=== PATIENT | female | born 1950 | race Caucasian/White ===

== ENCOUNTER 2019-10-27 17:52 | Inpatient (IN) ==
[2019-10-27] MEDS ORDERED: ASPIRIN PO ONE (18:12)
--- NOTE | 2019-10-27 18:30 | EKG Report ---
Test Performed on : 10/27/2019 6:01:45 PM Test Reason : SOB Blood Pressure : / mmHG Vent. Rate : 086 BPM Atrial Rate : 086 BPM P-R Int : 150 ms QRS Dur : 096 ms QT Int : 372 ms P-R-T Axes : 000 -53 143 degrees QTc Int : 445 ms Sinus rhythm. with occasional premature ventricular complexes. Left anterior fascicular block Left ventricular hypertrophy with repolarization abnormality Abnormal ECG When compared with ECG of 15-APR-2018 09:31, premature ventricular complexes. are now present Unconfirmed Result
--- NOTE | 2019-10-27 18:34 | PROVIDER DOCUMENTATION ---
HPI-General Adult - General Chief Complaint: Shortness of Breath Stated Complaint: SHORT OF BREATH Time Seen by Provider: 10/27/19 18:22 Source: patient Allergies/Adverse Reactions: Patient Allergies Allergy/AdvReac Type Severity Reaction Status Date / Time levofloxacin [From Levaquin] Allergy ITCHING Verified 10/27/19 18:38 Home Medications: Home Medication List Medication Instructions Recorded Confirmed Last Taken Type Unobtainable [Home Meds 10/27/19 10/27/19 Unknown History Unobtainable] - History of Present Illness -Gen Adult Nature of Presenting Problems: 69yo female presents with CC of shortness of breath and cough. The patient reports that she is also having central chest pain. The patient reports that the symptoms started on saturday and have been progressively worsening. The patient reports that her symptoms are worse with walking. The patient describes her pain as an ache. The pain does have some radiation to the neck. The patient has had some nausea and diarrhea. The patient is a pt of Dr. Lees for her CHF. The patient denies any bleeding or swelling. The patient does report a productive cough as well as a fever. The patient reports her only pain is a headache and chest pain. Location of Pain/Injury: reports: chest Pain Radiation: reports: neck Quality of Pain: reports: aching Severity: reports: moderate Onset/Duration: reports: 4 days ago Timing: reports: still present Modifying Factors: improves with: other (light activity worsens) Associated Symptoms: reports: chest pain, cough, fever/chills, nausea Review of Systems - Adult - REVIEW OF SYSTEMS - ADULT Constitutional: reports: fever Eyes: reports: no symptoms reported. denies: eye pain Ears, Nose, Mouth & Throat: reports: no symptoms reported. denies: throat pain Cardiovascular: reports: chest pain Respiratory: reports: cough, dyspnea on exertion, shortness of breath Gastrointestinal: reports: no symptoms reported. denies: abdominal pain Genitourinary: reports: no symptoms reported. denies: flank pain Musculoskeletal: reports: no symptoms reported Integumentary: reports: no symptoms reported Neurological: reports: headache/migraines Psychiatric: reports: no symptoms reported Endocrine: reports: no symptoms reported Hematologic/Lymphatic: reports: no symptoms reported, other (no bleeding) Allergic/Immunologic: reports: no symptoms reported Past History - Adult - PAST MEDICAL HISTORY-ADULT Review of Records: reports: Old Records Reviewed Cardiovascular: reports: CAD Obstetrical/Gynecological: reports: uterine/ovarian cancer Endocrine/Immune: reports: Diabetes - PRIOR SURGERIES/PROCEDURES Surgical/Procedure History: reports: hysterectomy - PRIOR HOSPITALIZATIONS Prior Hospitalizations: reports: for other non-related - IMMUNIZATION STATUS Childhood Immunizations: See Nurse Assessment Flu Vaccine: See Nurse Assessment - FAMILY HISTORY Family History: reviewed, not pertinent - SOCIAL HISTORY Smoking: cigarettes Substance Use: none/never Alcohol Use Frequency: never Physical Exam-General - PHYSICAL EXAM-ADULT Initial Vital Signs Reviewed: Yes - CONSTITUTIONAL General Appearance: alert, mild distress - EYES Eyes: negative: conjuctival exudate, photophobia, sclera injected, scleral icterus, subconjunctival hemorrhage - HEAD, EARS, NOSE, MOUTH & THROAT HENMT: normocephalic/atraumatic. negative: pharyngeal erythema, tonsillar exudate - RESPIRATORY Respiratory: respiratory distress (mild), wheezing (Bilaterally) - CARDIOVASCULAR Cardiovascular: regular rate, rhythm, no edema - GASTROINTESTINAL (ABDOMEN) Abdominal Exam: non tender, soft - MUSCULOSKELETAL Extremity: non-tender (LE) - SKIN Integumentary: normal color, warm/dry - NEUROLOGIC Neurologic: grossly normal - PSYCHIATRIC Psych/Mental Status: normal mood/affect, normal thought content, normal thought process Progress - PLAN OF CARE/RESULTS Progress/Plan/Lab Results: Vital Signs - 8 hr 10/27/19 17:58 Temperature 98.7 F Pulse Rate 89 Respiratory Rate 26 H Blood Pressure 144/66 O2 Sat by Pulse Oximetry 88 L Orders Category Date Time Status Cardiac Monitoring DIRECTED Care 10/27/19 18:12 Active Oxygen Therapy- ED Nursing DIRECTED Care 10/27/19 18:12 Active Saline Loc NOW Care 10/27/19 18:12 Active CHEST-2 VIEWS [RAD] Stat Exams 10/27/19 18:12 Ordered CBC WITH ELECTRONIC DIFF [HEME] Stat Lab 10/27/19 18:12 Uncollected CK PROFILE [SP CHEM] Stat Lab 10/27/19 18:12 Uncollected COMPREHENSIVE METABOLIC PANEL [CHEM] Stat Lab 10/27/19 18:12 Uncollected PRO B-NATRIURETIC PEPTIDE Stat Lab 10/27/19 18:12 Uncollected PROTIME WITH INR [COAG] Stat Lab 10/27/19 18:12 Uncollected PTT [COAG] Stat Lab 10/27/19 18:12 Uncollected TROPONIN T Stat Lab 10/27/19 18:12 Uncollected Aspirin Med 10/27/19 18:12 Discontinued 325 mg PO NOW ONE CP/SOB/Palp >45 yrs of Age Stat Oth 10/27/19 18:12 Ordered EKG [EKG] Stat Ther 10/27/19 18:12 Draft Result Diagrams: 10/27/19 18:25 10/27/19 18:25 - REASSESSMENT Reassessment #1 Status: other (Discussed case and EKG with Dr. Lees of cardiology who thought that the patients EKG appeared fine. Will continue to monitor and plan for admission for [facility]FE.) Reassessment #2 Status: other (Given hypoxia and tachypnea as well as elevated BNP will plan for admission. Patient was agreeable to admission. Discussed admission with the hospitalist team who have accepted the patient.) - EKG 1 EKG Read and Signed by:: Coral Fowler (Entered and Reviewed by Dr. Smith) EKG Interpretation (*Must complete 3 of following elements*): Abnormal Rate: 86 Rhythm: sinus [place]: left QRS: LVH, PVC's [place] Interval: normal ST Wave: elevated, non-specific ST changes Prior EKG Comparison: unchanged from prior Comments: similar to previous, non-specific elevations noted in previous and current 2 Time of EKG reading by physician:: 19:32 EKG Read and Signed by:: Coral Fowler (Entered and Discussed with Dr. Smith) EKG Interpretation (*Must complete 3 of following elements*): Abnormal Rate: 75 Rhythm: sinus [place]: left QRS: normal, LVH [place] Interval: normal ST Wave: elevated, non-specific ST changes Prior EKG Comparison: unchanged from prior (Discussed with Dr. Fowler and no sig nificant changes noted from previous EKG. Elevation noted on previous EKG as well as T wave inversions. No contigous elevations noted.) - XRAY 1 XRAY Study: Chest Impression: See EMR Report (EXAM: CHEST-2 VIEWS INDICATION: sob TECHNIQUE: 2 views COMPARISON: 04/14/2018 FINDINGS: There is ill-defined opacity in the mid and lower lung zone on the left suggesting possible developing consolidation. The right lung appears to be clear. There is no discrete pleural fluid collection or pneumothorax. The cardiomediastinal silhouette and central vasculature are grossly unremarkable. IMPRESSION: Ill-defined opacity at the left mid and lower lung zone suggesting possible developing infiltrate. Electronically signed by Paul Flor 10/27/2019 7:51 PM 10/27/191950 Interpreting Physician: Paul Flor MD Dictated Date/Time: 10/27/191949 cc: Coral Fowler MD; None,PCP) Departure - Departure Date of Disposition Decision: 10/27/19 Time of Disposition Decision: 20:11 DIAGNOSIS: Shortness of breath, Tachypnea CHF (congestive heart failure) Qualifiers: Heart failure type: unspecified Heart failure chronicity: acute on chronic Qualified Code(s): I50.9 - Heart failure, unspecified Disposition: ADMITTED INPATIENT 09 Certified Medical Emergency: Emergent Condition: Fair Referrals and Follow-Ups: None,PCP [Primary Care Provider] - Discharge Education: Steps to Quit Smoking, [id number] - Critical Care Note This patient required my direct & personal management of CC.: No Attestation - Physician/ JAZLYN Attestation Patient care was provided by Advanced Practice Provider:: No The physician spent face to face time with patient:: Yes Advanced Practice Provider documentation review:: Supervising physician onsite and consulted in the evaluation and care of this patient. The physician did have a face to face encounter with the patient.
[2019-10-27] MEDS ORDERED: DUONEB (A & A) INH ONE (18:51)
[2019-10-27 19:04] LABS: BASO# 0.01 X1000 (0.0-0.2); BASO% 0.1 % (0.0-0.8); EOS# 0.06 X1000 (0.0-0.7); EOS% 0.6 % (0.0-10.0); HEMOGLOBIN 11.8 g/dL (12.0-16.0); IMM GRAN# 0.02 X1000 (0.0-0.04); IMM GRAN% 0.2 % (0.0-0.5); LYMPH# 0.61 X1000 (1.2-3.4); LYMPH% 6.4 % (20.5-51.1); MCH 27.8 PG (27-31); MCHC 33.7 g/dL (33-37); MCV 82.4 FL (81-99); MONO# 0.67 X1000 (0.11-0.59); MONO% 7.1 % (1.7-9.3); MPV 10.6 FL (7.4-10.4); NEUT# 8.12 X1000 (1.4-6.5); NEUT% 85.6 % (42.2-75.2); PLT 231 X1000 (130-400); RBC 4.25 XMIL (4.2-5.4); RDW 12.5 % (11.5-14.5); WBC 9.49 X1000 (4.8-10.8)
[2019-10-27 19:07] LABS: INR 1.13; PROTIME 14.7 Seconds (11.0-16.0); PTT 30.5 Seconds (22.3-41.8)
[2019-10-27 19:25] LABS: ALB/GLOB RATIO 1.7; ALBUMIN 3.9 g/dL (3.5-5.0); CALCIUM 8.5 mg/dL (8.8-10.2); CREATININE 1.4 mg/dL (0.5-0.9); POTASSIUM 3.6 mmol/L (3.5-5.1); TOTAL BILIRUBIN 0.21 mg/dL (0.20-1.00); TOTAL PROTEIN 6.2 g/dL (6.3-8.3)
--- NOTE | 2019-10-27 19:51 | EKG Report ---
Test Performed on : 10/27/2019 7:28:43 PM Test Reason : Abnormal EKG Blood Pressure : / mmHG Vent. Rate : 076 BPM Atrial Rate : 076 BPM P-R Int : 182 ms QRS Dur : 100 ms QT Int : 406 ms P-R-T Axes : 036 -43 150 degrees QTc Int : 456 ms Normal sinus rhythm. with sinus arrhythmia. Left axis deviation Left ventricular hypertrophy with repolarization abnormality Abnormal ECG When compared with ECG of 27-OCT-2019 18:01, (Unconfirmed) premature ventricular complexes. are no longer present Unconfirmed Result
--- NOTE | 2019-10-27 19:54 | Diag Imaging Result Doc PS360 ---
EXAM: CHEST-2 VIEWS INDICATION: sob TECHNIQUE: 2 views COMPARISON: 04/14/2018 FINDINGS: There is ill-defined opacity in the mid and lower lung zone on the left suggesting possible developing consolidation. The right lung appears to be clear. There is no discrete pleural fluid collection or pneumothorax. The cardiomediastinal silhouette and central vasculature are grossly unremarkable. IMPRESSION: Ill-defined opacity at the left mid and lower lung zone suggesting possible developing infiltrate. Electronically signed by Paul Flor 10/27/2019 7:51 PM
[2019-10-27] MEDS ORDERED: LASIX IV ONE (20:07)
[2019-10-27 20:13] LABS: CK INDEX 3.7 (0.0-2.5); CK-MB 9.92 ng/mL (0.0-5.0)
[2019-10-27 20:18] LABS: BE -8.3 mmoll (-3.0-3.0); BLOOD TYPE ARTERIAL; HCO3-(ACT) 18.3 mmoll (20.0-26.0); PCO2(98.6) 34 mmHg (35-45); PO2(98.6) 55 mmHg (60-100); SAMPLE BLOOD; SAO2 92.6 % (95.0-100.0); THB 11.6 g/dL (11.5-17.4); pH(98.6) 7.31 (7.35-7.45)
[2019-10-27 20:19] LABS: ALLEN TEST YES; METHB 1.5 % (0.0-1.5); O2(CT) 14.6 mL/dL (15.0-23.0)
[2019-10-27 20:21] LABS: O2HB 89.4 % (95.0-99.0)
[2019-10-27] MEDS ORDERED: DUONEB (A & A) INH PRN (21:48)
[2019-10-27] MEDS: LASIX IV SCH (21:48)
[2019-10-27] MEDS ORDERED: ZOFRAN IV PRN (21:48)
[2019-10-27] MEDS ORDERED: TYLENOL PO PRN (21:48)
[2019-10-27 22:27] LABS: CK INDEX 3.9 (0.0-2.5); CK-MB 8.94 ng/mL (0.0-5.0)
--- NOTE | 2019-10-27 23:17 | HISTORY AND PHYSICAL ---
PRIMARY CARE PHYSICIAN: Dr. Santoyo. CHIEF COMPLAINT: Shortness of breath for 3 days. HISTORY OF PRESENTING ILLNESS: A 69-year-old female with a history of peripheral vascular disease, diabetes mellitus type 2, hypertension, hyperlipidemia, and previous pericardial effusion who had presented to the emergency department with 3 days history of having worsening shortness of breath. The patient states that during this time, she was also having chest discomfort and was nauseated and diaphoretic. She was in seen in the ER, she was dyspneic. She was put on supplemental oxygen. It was thought that she was in heart failure. Her EKGs were reviewed by oxygen therapist and it seemed it was normal. However patient due to her presenting symptoms, will require admission for further management. The patient also had a chest x-ray which did show infiltrates and she will be started on antibiotics for suspected pneumonia. At the time of my examination, she had denied any headache, fever, chills, hemoptysis, melena, but complained of shortness of breath and chest discomfort. PAST MEDICAL HISTORY: Include peripheral vascular disease, diabetes mellitus type 2, chronic kidney disease, hypertension, hyperlipidemia, COPD, pericardial effusion. PAST SURGICAL HISTORY: Pericardial window, cholecystectomy, right rotator cuff surgery, hysterectomy. ALLERGIES: No known drug allergies. CURRENT MEDICATIONS: She does not recall. Nursing staff will reconcile. SOCIAL HISTORY: Fifty pack years history of smoking. She denies any history of alcohol or illicit drug use. FAMILY HISTORY: Positive for coronary disease mother and father. REVIEW OF SYSTEMS: Fourteen point review of system as listed in HPI. Other systems negative. PHYSICAL EXAMINATION: GENERAL: Cooperative, friendly female. She is resting more comfortably now. VITAL SIGNS: Temperature 98.7 degrees, pulse 89, respirations 26, blood pressure 144/66. She is saturating 88% on room air. HEENT: Atraumatic, normocephalic. Extraocular movements intact. PERRLA. NECK: No masses. CHEST: Bibasilar rales. CARDIOVASCULAR: Regular rate and rhythm. ABDOMEN: Soft. Positive bowel sounds. EXTREMITIES: No edema. NEUROLOGIC: She is awake, alert, oriented x3. : No bladder distention. SKIN: Warm. LABORATORIES AND STUDIES: WBC 9.49, hemoglobin 11.8, hematocrit 35.0, platelets 231,000. Blood gas shows pH of 7.31. Sodium 134, potassium 3.6, chloride 101, CO2 16, BUN is 30, creatinine is 1.4, glucose is 395. ProBNP is 5099, troponin 0.026. Chest x-ray shows ill-defined opacity in the left mid and lower lung zone possibly suggesting possible developing infiltrate. ASSESSMENT: 69-year-old female with a history of diabetes mellitus type 2, chronic kidney disease, hypertension, hyperlipidemia, chronic obstructive pulmonary disease, who had presented to emergency department with 3 days history of worsening shortness of breath and chest discomfort. She was seen in the emergency department and due to her presenting symptoms, she will require admission for further management. 1. Suspected pneumonia. 2. Probable congestive heart failure. 3. Diabetes mellitus type 2. 4. Hypertension. PLAN: 1. We will admit patient to PVC. 2. We will check blood cultures. Start patient on IV antibiotics. 3. Continue gentle diuresis with Lasix. 4. CT angiogram is pending. 5. We will continue with sliding scale insulin regimen. Monitor blood glucose closely. 6. Monitor blood pressure. Resume antihypertensive agent. 7. Put patient on DVT prophylaxis with SCDs. 8. We will continue to follow and reassess. Make further recommendation based on patient's clinical course. cc: Rocky Flynn MD
[2019-10-27] MEDS: ZOSYN 3.375 GM in NS 50 ML IV SCH (23:53)
[2019-10-28] MEDS: DUONEB (A & A) INH PRN ×2 (00:14→03:11)
[2019-10-28] MEDS: ZOSYN 3.375 GM in NS 50 ML IV SCH ×4 (03:48→20:55)
[2019-10-28 05:08] LABS: BASO# 0.01 X1000 (0.0-0.2); BASO% 0.1 % (0.0-0.8); HEMATOCRIT 33.6 % (37.0-47.0); HEMOGLOBIN 11.3 g/dL (12.0-16.0); IMM GRAN# 0.02 X1000 (0.0-0.04); IMM GRAN% 0.2 % (0.0-0.5); LYMPH# 0.77 X1000 (1.2-3.4); MCH 27.9 PG (27-31); MCHC 33.6 g/dL (33-37); MONO# 0.82 X1000 (0.11-0.59); MONO% 8.5 % (1.7-9.3); MPV 10.6 FL (7.4-10.4); NEUT# 7.95 X1000 (1.4-6.5); NEUT% 82.2 % (42.2-75.2); PLT 216 X1000 (130-400); RBC 4.05 XMIL (4.2-5.4); RDW 12.4 % (11.5-14.5); WBC 9.67 X1000 (4.8-10.8)
[2019-10-28 05:33] LABS: CALCIUM 8.5 mg/dL (8.8-10.2); CREATININE 1.2 mg/dL (0.5-0.9); POTASSIUM 3.1 mmol/L (3.5-5.1)
[2019-10-28 06:30] LABS: MODALITY CANNULA
--- NOTE | 2019-10-28 07:06 | Diag Imaging Result Doc PS360 ---
EXAM: CT ANGIOGRAM PULMONARY ARTERIES 10/27/2019 HISTORY: Sob, r/o Poss. PE or Pericardial Effusion TECHNIQUE: This exam was performed using automated exposure control, adjustment of mA or kV according to patient size, and/or use of iterative reconstruction technique. COMMENT: 3-D MIPS were performed. There are no previous thoracic studies available for comparison. Where possible comparison is made with the previous abdominal study of 11/21/2018. There are no filling defects in the pulmonary arteries. There are atherosclerotic calcifications in the aorta and brachiocephalic arteries. There is no evidence of aneurysm or dissection. There is dense calcification in the circumflex artery. There are calcifications in the mitral valve annulus. There is no pericardial effusion and no pleural effusions are present. There is enlargement of the medial lobe of the right adrenal gland which was also present on the previous study. There is a pleural-based opacity present in the lateral left lower lobe which was not present at the time the previous abdominal study. There are also patchy alveolar opacities in the lingula and some small nodular opacities are present in the right middle and lower lobe. There is pleural-based opacity on the mediastinal aspect of the right lower lobe which was not apparent at the time the previous study. There is a calcified granuloma in the right upper lobe. Some bronchial thickening is present generally. There are spondylotic changes in the thoracic spine. No acute bony abnormalities are present. IMPRESSION: Pneumonia in the lingula and left lower lobe and to some extent the right lower lobe. Follow-up imaging is recommended. No evidence of pulmonary emboli. Stable right adrenal adenoma. Electronically signed by Brennan Greene 10/28/2019 7:03 AM
[2019-10-28] MEDS: HUMULIN R SUBQ SCH ×4 (07:22→20:55)
[2019-10-28] MEDS: LASIX IV SCH (09:52)
[2019-10-28] MEDS ORDERED: KLOR-CON PO ONE (10:26)
[2019-10-28] MEDS: AMARYL PO SCH (12:21)
[2019-10-28] MEDS: PLAVIX PO SCH (12:21)
[2019-10-28] MEDS: SOLU-MEDROL IV SCH ×3 (14:16→21:05)
--- NOTE | 2019-10-28 14:57 | PROGRESS NOTE ---
DATE: 10/28/2019 SUBJECTIVE: This patient is still short of breath. She is still wheezing bilaterally. She is still having cough. She has been placed on oxygen breathing treatment and antibiotics. I strongly believe this patient has COPD exacerbation as well, given her history of heavy smoking for more than 50 years. I will add steroids to her medications, and I will continue with antibiotics because of her pneumonia. I do not see any fluid collection in the CT scan or pulmonary edema, no PE. I will stop the Lasix for now. I will continue with her home medications as well. OBJECTIVE: Vital Signs: Temperature 98.5 degrees, pulse 87, respiratory rate 28, blood pressure 146/60, oxygen saturation 96 on nasal cannula. HEENT: Head normocephalic, no trauma. PERRLA. Neck: Supple. No JVD. Central trachea. Chest: Decreased breath sounds globally with prolonged expiratory phase and bilateral wheezing, inspiratory and expiratory, crepitus at the bases with probably some rhonchi. Cardiovascular: RRR. Abdomen: Soft. Positive bowel sounds, no content. Nontender to palpation. Extremities: No edema. No clubbing. No cyanosis. Neurological: The patient is alert, awake and oriented x3. LABORATORY: WBC 9.6, hemoglobin 11.3, hematocrit 33.6, platelets 216. Sodium 131, potassium 3.1, chloride 104, bicarbonate 17. BUN 29, creatinine 1.2, glucose 266, calcium 8.5. ASSESSMENT AND PLAN: 1. Bilateral bibasilar pneumonia. I will continue with Zosyn for now. She seems to be feeling a little bit better compared with yesterday, but she is still short of breath and she is still coughing up some phlegm. I will ask for a sputum culture, and if it has not been done I will ask for a blood culture as well. 2. Chronic obstructive pulmonary disease exacerbation. I will add steroids to her medications and continue with breathing treatment, antibiotics, and oxygen supplementation. 3. History of coronary artery disease. Continue with Plavix. 4. We have an echocardiogram on 04/15/2019 that showed a markedly hypertrophic left ventricle with hyperdynamic contractility, and this could potentially correspond to a case of HOCM. Her proBNP is elevated, but it looks like it has been elevated before since 2015. I do believe there is a pulmonary component on this. Her ejection fraction last time in 2018 was around 75 to 80 percent. 5. Hypoxemic respiratory failure secondary to pneumonia and chronic obstructive pulmonary disease exacerbation. Continue with oxygen supplementation. 6. Type 2 diabetes. I have placed this patient back on her Amaryl. Also I will do sliding scale insulin and pattern of blood sugar. Likely her blood sugar is going to be elevated because of the steroids. 7. Hypertension. Continue with same management. 8. Normocytic anemia. Aware. We will monitor for now. 9. Chronic kidney disease. This is her baseline. 10. Cardiology Department has been consulted for the possibility of CHF. I do believe the proBNP is the result of her COPD exacerbation and increased pulmonary pressures, but she has a history of HOCM as well. We will wait for recommendations. 11. Tobacco abuse. This patient has been highly advised against tobacco use. I will continue with daily cessation education. This patient has been smoking for more than 50 years. As per the patient, she is now smoking around 3 cigarettes per day, but she used to smoke 2 packs a day. cc: Popeye Choe MD
--- NOTE | 2019-10-28 15:23 | ECHO REPORT ---
ORDER DATE: 10/27/2019 INTERPRETING PHYSICIAN: Dr. Wilber Lees ECHOCARDIOGRAPHIC MEASUREMENTS: 1. Interventricular septum 2.1 cm. 2. Left ventricular diastolic diameter 1.6 cm. 3. Left ventricular systolic diameter 3.5 cm. 4. Left atrium 4.7 cm. 5. Aorta 2.9 cm. 6. Right ventricle 3.3 cm. SUMMARY OF THE 2-DIMENSIONAL IMAGIN. Aortic valve leaflets are trileaflet. 2. Mitral valve leaflets revealed slight systolic anterior motion of the tip of the mitral valve leaflet. 3. There is severe mitral annular calcification. 4. Tricuspid valve is normal. 5. There is biatrial enlargement. 6. There is severe left ventricular hypertrophy, normal left ventricular cavity size. Estimated ejection fraction of 65% to 70%. There is diastolic dysfunction grade 3. 7. There is no aortic stenosis or regurgitation. 8. Peak gradient across the interventricular outflow tract was 2.4 m/second by Valsalva maneuver. 9. There was mild tricuspid regurgitation. Peak velocity across the tricuspid valve was 3 m/second. 10. Pulmonary artery systolic pressure of 50 mmHg. 11. There is mild mitral regurgitation. CONCLUSIONS: Concentric severe left ventricular hypertrophy with estimated ejection fraction of 65% to 70%. There is grade 3 diastolic dysfunction. There is no pericardial effusion or obvious intracardiac mass or thrombus seen. cc: MD Rocky Campos MD
[2019-10-28] MEDS: DUONEB (A & A) INH SCH ×3 (16:07→23:39)
[2019-10-28] MEDS: ZOCOR PO SCH (20:55)
--- NOTE | 2019-10-28 22:44 | CONSULTATION ---
DATE OF CONSULTATION: 10/28/2019 IMPRESSION: 1. Shortness of breath, pleuritic chest discomfort, and productive cough for the last several days with prominent wheezing/rhonchi on exam. Suspect acute respiratory infectious process such as bronchitis and possible early pneumonia. 2. Chronic obstructive pulmonary disease. 3. Mild coronary atherosclerosis by previous coronary angiography in 2015. 4. Type 2 diabetes mellitus. 5. Hypertension. 6. Peripheral vascular disease. 7. Hyperlipidemia. 8. Status post pericardial drainage of large pericardial effusion several years ago. Pericardial effusion felt to be viral in origin. RECOMMENDATIONS: 1. Telemetry observation. 2. Aggressively treat COPD exacerbation with acute pulmonary infectious process. 3. Follow up echocardiography. HISTORY: This is a 69-year-old white female with a past history of COPD, mild coronary atherosclerosis, hypertensive cardiovascular disease, type 2 diabetes mellitus, previous pericardial window for viral pericardial effusion, and peripheral vascular disease, was admitted with a several day history of shortness of breath, productive cough and chest discomfort. Cardiology was consulted to assist with evaluation. She relates having progressive tendency for shortness of breath since late last week. This has been accompanied by cough productive of white to brown sputum. She also describes some vague discomfort across the lower anterior chest that seems to be worse with deep breath. There has been no orthopnea. She is not aware of any fever. She quit smoking cigarettes about 9 months ago due to symptoms of dyspnea. She had previous cardiac evaluation with coronary angiography in 2015., which reportedly demonstrated very mild coronary atherosclerosis. She has also had Follow up myocardial perfusion studies the last performed in June of 2017, which was negative for evidence of inducible myocardial ischemia. Echocardiography in the past, follow up myocardial perfusion studies since then, the last in April of 2018 demonstrating no convincing evidence of inducible myocardial ischemia. Left ventricular ejection fraction has been normal. Echocardiography in April of 2018 also demonstrated left hypertrophy with normal left ventricular ejection fraction and mild to moderate mitral regurgitation. PAST MEDICAL HISTORY: 1. Hypertensive cardiovascular disease with left hypertrophy. 2. Very mild coronary atherosclerosis by coronary angiography in 2015. 3. Type 2 diabetes mellitus. 4. Chronic obstructive pulmonary disease. 5. Hyperlipidemia. 6. History of pericardial effusion felt to be viral in origin requiring pericardial window for drainage. 7. Chronic kidney disease. 8. Obesity. PAST SURGICAL HISTORY: Includes cholecystectomy, right rotator cuff repair, and hysterectomy. ALLERGIES: She is allergic or intolerant to levofloxacin. MEDICATIONS PRIOR TO ADMISSION: As listed. SOCIAL HISTORY: She previously smoked a pack to a pack and a half cigarettes a day for many years, but discontinued this about 9 years ago. She does not use alcohol. FAMILY HISTORY: Positive for coronary disease. REVIEW OF SYSTEMS: Pulmonary: Noteworthy for progressive shortness of breath and cough productive of white to brown sputum. There has also been some pleuritic chest pain. Constitutional: Negative for fever. Gastrointestinal: Noncontributory. Remainder of the review of systems is negative/noncontributory with 14 total systems reviewed. PHYSICAL EXAMINATION: General: This is an obese older white female in no distress. Vital signs: Blood pressure 177/81, heart rate 95, oxygen saturation 99% on high-flow oxygen. HEENT: Extraocular movements intact. Mucous membranes are moist. Neck: Supple without jugular venous distention on auscultation. Chest: Reveals prominent scattered expiratory wheezes and rhonchi. No rales could be appreciated. Cardiac: Reveals a regular rate and rhythm without appreciable murmur or gallop. Abdomen: Soft. Bowel sounds are normal. Extremities: Without edema. Neurologic: Reveals her to be alert and fully oriented. Speech is fluent. She moves all 4 extremities equally well. Skin: Warm and dry. Psychiatric: Reveals her mood to be appropriate. IMAGING DATA: Twelve lead EKG demonstrates normal sinus rhythm with sinus arrhythmia, left axis deviation, and left hypertrophy with repolarization abnormality. Echocardiography indicates severe left hypertrophy with estimated left ejection fraction of approximately 70% with evidence of diastolic dysfunction. Mild mitral regurgitation reported. Mild tricuspid regurgitation with moderate pulmonary hypertension reported. LABORATORY DATA: Includes a white blood cell count of 9.67, hematocrit 33.6, hemoglobin 11.3, platelet count 216,000. Sodium 138, potassium 3.1 chloride 104, carbon dioxide 17, BUN 29, creatinine 1.2, glucose 266. Initial troponin 0.024, follow up troponin 0.029. cc: Rinku Minor MD
[2019-10-29] MEDS: ZOSYN 3.375 GM in NS 50 ML IV SCH ×4 (02:23→22:03)
[2019-10-29] MEDS: DUONEB (A & A) INH SCH ×6 (03:33→22:50)
[2019-10-29 06:03] LABS: ALLEN TEST YES; BE -7.9 mmoll (-3.0-3.0); BLOOD TYPE ARTERIAL; HCO3-(ACT) 18.7 mmoll (20.0-26.0); METHB 1.3 % (0.0-1.5); O2(CT) 16.1 mL/dL (15.0-23.0); O2HB 95.6 % (95.0-99.0); PCO2(98.6) 35 mmHg (35-45); PO2(98.6) 96 mmHg (60-100); SAMPLE BLOOD; SAO2 98.3 % (95.0-100.0); THB 11.9 g/dL (11.5-17.4); pH(98.6) 7.31 (7.35-7.45)
[2019-10-29 06:05] LABS: MODALITY CANNULA
[2019-10-29] MEDS: HUMULIN R SUBQ SCH ×5 (06:11→21:57)
[2019-10-29] MEDS: SOLU-MEDROL IV SCH ×3 (06:11→21:57)
[2019-10-29 06:21] LABS: BASO# 0.01 X1000 (0.0-0.2); BASO% 0.1 % (0.0-0.8); EOS# 0.02 X1000 (0.0-0.7); EOS% 0.2 % (0.0-10.0); HEMATOCRIT 34.8 % (37.0-47.0); HEMOGLOBIN 11.6 g/dL (12.0-16.0); IMM GRAN# 0.03 X1000 (0.0-0.04); IMM GRAN% 0.3 % (0.0-0.5); LYMPH# 0.43 X1000 (1.2-3.4); LYMPH% 4.8 % (20.5-51.1); MCH 27.9 PG (27-31); MCHC 33.3 g/dL (33-37); MCV 83.7 FL (81-99); MONO# 0.15 X1000 (0.11-0.59); MONO% 1.7 % (1.7-9.3); MPV 10.4 FL (7.4-10.4); NEUT# 8.36 X1000 (1.4-6.5); NEUT% 92.9 % (42.2-75.2); PLT 249 X1000 (130-400); RBC 4.16 XMIL (4.2-5.4); RDW 12.6 % (11.5-14.5)
[2019-10-29 06:28] LABS: ALB/GLOB RATIO 1.1; ALBUMIN 3.3 g/dL (3.5-5.0); CALCIUM 8.7 mg/dL (8.8-10.2); CREATININE 1.4 mg/dL (0.5-0.9); POTASSIUM 3.6 mmol/L (3.5-5.1); TOTAL BILIRUBIN 0.17 mg/dL (0.20-1.00); TOTAL PROTEIN 6.3 g/dL (6.3-8.3)
[2019-10-29] MEDS: PLAVIX PO SCH (08:12)
[2019-10-29] MEDS: ISOPTIN SR PO SCH (08:12)
[2019-10-29] MEDS: AMARYL PO SCH (08:12)
--- NOTE | 2019-10-29 09:23 | PROGRESS NOTE ---
DATE: 10/29/2019 SUBJECTIVE: This patient seems to be feeling much better. She is still having bilateral wheezing and some crackles with rhonchi. She does have bilateral pneumonia. She has been placed on antibiotics. She has a long smoking history, and likely this patient has COPD and she is in exacerbation at this moment. I will put this patient on steroids, and I will monitor. OBJECTIVE: Vital Signs: Temperature 97.9 degrees, pulse 101, respiratory rate 16, blood pressure 137/54, oxygen saturation 94% on 2 L of nasal cannula. HEENT: Head normocephalic. No trauma. PERRLA. Neck: Supple. No JVD. No masses. Central trachea. Chest: Decreased breath sounds globally with prolonged expiratory phase and bilateral wheezing, expiratory, crepitus and rhonchi bilaterally, mostly at the bases. Some crackles. Cardiovascular: RRR. Abdomen: Soft, nontender, nondistended. Positive bowel sounds. Extremities: No edema, no clubbing, no cyanosis. Neurological: The patient is awake. She is alert. She is oriented x3. No focal deficits. LABORATORY DATA: WBC 9, hemoglobin 11.6, hematocrit 34.8, platelets 249,000. Sodium 138, potassium 3.6, chloride 103, bicarbonate 17, BUN 34, creatinine 1.4, glucose 325, calcium 8.7, albumin 3.3. ASSESSMENT AND PLAN: 1. Bibasilar pneumonia. Continue with Zosyn for now. She seems to be feeling much better compared with yesterday. She is still short of breath, and she is still having wheezing and coughing up some phlegm. I have requested a sputum culture already, and I will get a hemoglobin A1c for tomorrow. 2. Chronic obstructive pulmonary disease exacerbation. Continue with steroids, breathing treatment, antibiotics, and oxygen supplementation. 3. History of coronary artery disease. Continue with Plavix. 4. We have an echocardiogram on 04/15/2019 that showed the possibility of HOCM. We repeated the echocardiogram, and it shows concentric severe left ventricular hypertrophy with estimated ejection fraction of 65% to 70%, and there is grade 3 diastolic dysfunction. There is no pericardial effusion or obvious intracardiac mass or thrombus. Cardiology Department on board. 5. Hypoxemic respiratory failure secondary to pneumonia and chronic obstructive pulmonary disease exacerbation. Will continue with the same management. 6. Type 2 diabetes. I have placed this patient back on her Amaryl. Also, I have placed this patient on Lantus and sliding scale insulin since this patient is getting steroids. 7. Hypertension. Continue with the same management. 8. Normocytic anemia. Aware. We will monitor for now. 9. Chronic kidney disease. It looks like this is her baseline. 10. Possible diastolic congestive heart failure. I think at this moment, her shortness of breath is more related to chronic obstructive pulmonary disease exacerbation and pneumonia. I did not see too much fluids on the CT scan. 11. Tobacco abuse. This patient has been highly advised against tobacco use. I will continue with daily cessation education. She has been smoking for more than 50 years, and she used to smoke up to 2 packs a day. Now, she is smoking 3 cigarettes per day, but she needs to quit completely. cc: Popeye Choe MD
[2019-10-29] MEDS: LANTUS INSULIN SUBQ SCH (10:51)
[2019-10-29] MEDS: ZOCOR PO SCH (21:57)
[2019-10-30] MEDS: DUONEB (A & A) INH SCH ×6 (03:33→23:11)
[2019-10-30] MEDS: ZOSYN 3.375 GM in NS 50 ML IV SCH ×4 (04:28→20:35)
[2019-10-30 06:08] LABS: BASO# 0.01 X1000 (0.0-0.2); BASO% 0.1 % (0.0-0.8); HEMATOCRIT 36.4 % (37.0-47.0); IMM GRAN# 0.11 X1000 (0.0-0.04); IMM GRAN% 0.7 % (0.0-0.5); LYMPH# 0.69 X1000 (1.2-3.4); LYMPH% 4.5 % (20.5-51.1); MCH 27.3 PG (27-31); MCV 82.9 FL (81-99); MONO# 0.43 X1000 (0.11-0.59); MONO% 2.8 % (1.7-9.3); MPV 10.3 FL (7.4-10.4); NEUT# 14.26 X1000 (1.4-6.5); NEUT% 91.9 % (42.2-75.2); PLT 316 X1000 (130-400); RBC 4.39 XMIL (4.2-5.4); RDW 12.7 % (11.5-14.5)
[2019-10-30 06:19] LABS: HEMOGLOBIN A1C 7.5 % (4.8-6.0)
[2019-10-30 06:22] LABS: CALCIUM 9.3 mg/dL (8.8-10.2); CREATININE 1.6 mg/dL (0.5-0.9); POTASSIUM 3.8 mmol/L (3.5-5.1)
[2019-10-30] MEDS: SOLU-MEDROL IV SCH ×3 (06:23→21:13)
[2019-10-30] MEDS: HUMULIN R SUBQ SCH ×4 (06:23→20:35)
[2019-10-30 07:21] LABS: BANDS 2 % (0-1); LYMPHS 8 % (21-51); SEGS 90 % (42-75)
[2019-10-30] MEDS: AMARYL PO SCH (08:29)
[2019-10-30] MEDS: PLAVIX PO SCH (08:29)
[2019-10-30] MEDS: ISOPTIN SR PO SCH (08:29)
[2019-10-30] MEDS: LANTUS INSULIN SUBQ SCH (08:35)
--- NOTE | 2019-10-30 10:32 | Diag Imaging Result Doc PS360 ---
EXAM: CHEST-2 VIEWS 10/30/2019 HISTORY: hypoxia TECHNIQUE: PA and lateral chest COMMENT: There is a platelike opacity in the lingula. This has not changed since 10/27/2019. It was not present on 04/14/2018. Otherwise the appearance the chest has not changed significantly since the previous study. The fluid which was present in the fissures previously is no longer visible. IMPRESSION: Left upper lobe atelectasis. Electronically signed by Brennan Greene 10/30/2019 10:30 AM
[2019-10-30] MEDS ORDERED: DUONEB (A & A) INH PRN (11:56)
[2019-10-30] MEDS: DOXYCYCLINE 100 MG in NS 250 ML IV SCH (13:03)
--- NOTE | 2019-10-30 15:59 | PROGRESS NOTE ---
DATE: 10/30/2019 SUBJECTIVE: This morning, Ms. Marino referred to be doing fairly okay. Still remains remarkably short of breath and she is on nasal cannula oxygenation. Sister was at the bedside at the time of the encounter. OBJECTIVE: Vital signs: Blood pressure is 150/61, pulse of 87, respirations 20, temperature is 98.2 degrees. The patient is saturating 97% on 2 L. General: Ms. Marino is a 69-year-old female. She is in bed. She is in mild respiratory distress. Mucosa is pink and moist. Anicteric. Acyanotic. Neck: Supple. There is positive mild JVD. Chest: Air entry is bilaterally reduced. There is diffuse noisy expiratory wheezing and rhonchi in both lung zarate. Cardiovascular: Regular rate and rhythm. No murmurs, no rubs, no gallops. Abdomen: Soft, distended, but nontender. Bowel sounds present. Extremities: No pedal edema. Central Nervous System: Patient is awake, alert, and oriented. There is no focal neurological deficit. LABORATORY DATA: WBC is up to 15.5. However, I think part of it is because of the steroids. Chemistry has been reviewed. Creatinine is up to 1.6. Glucose of 262, A1c of 7.5. CURRENT MEDICATIONS: Have also all been reviewed. IMAGING STUDIES: On admission including a CTA of the lungs show pneumonia in the lingula and left lower lobe and to some extent the right lower lobe. There was no evidence of pulmonary emboli. ASSESSMENT: 1. Acute hypoxemic respiratory failure. The patient is currently on nasal cannula oxygenation, saturating better. She did present with O2 saturation of about 88%. 2. Chronic obstructive pulmonary disease in severe exacerbation. 3. Left lingular pneumonia. Patient is on antimicrobial coverage. We are going to add doxycycline for methicillin-resistant Staphylococcus aureus coverage. 4. Uncontrolled hypertension. We are going to continue titrating the blood pressure medications. 5. Severe left ventricular hypertrophy with grade 3 diastolic dysfunction noted on echo. 6. Diastolic heart failure. 7. History of mild coronary artery disease. 8. Status post pericardial drainage of large pericardial effusion several years back. In general, think Ms. Marino is doing fairly okay. She continues to be wheezing pretty harshly. We are going to continue with the steroids, antimicrobial nebulizations, and get Pulmonary Medicine also to see her. cc: Paul Padilla MD MTDD
[2019-10-30] MEDS: MUCOMYST 20% INH SCH (19:30)
[2019-10-30] MEDS: ZOCOR PO SCH (20:35)
--- NOTE | 2019-10-30 23:31 | CONSULTATION ---
DATE OF CONSULTATION: 10/30/2019 REQUESTING PROVIDER: Paul Padilla MD. REASON FOR CONSULTATION: Severe COPD exacerbation. HISTORY OF PRESENT ILLNESS: This is a 69-year-old, female, with a medical history of COPD, ongoing daily light tobacco use, mild coronary atherosclerosis, diabetes mellitus type 2, hyperlipidemia, chronic kidney disease, uterine cancer, peripheral arterial disease, and pericardial effusion. She presented to the ER on 10/27/2019, with worsening shortness of breath and a productive cough. CT angiogram of pulmonary arteries on 10/27/2019, showed pneumonia in the lingula, the left lower lobe, and to some extent the right lower lobe. Echocardiogram on the same day, showed concentric severe left ventricular hypertrophy with estimated ejection fraction of 65% to 70%, with grade 3 diastolic dysfunction. The patient has been admitted to the [facility] with pneumonia and congestive heart failure. She was placed on Lasix since admission, which has been discontinued on 10/28/2019. Zosyn has been started since admission and Dr. Padilla has started doxycycline today for MRSA coverage. The patient currently is sitting on the edge of the bed with no acute distress noted. She is on nasal cannula at 2 L and tolerates well. She reports persistent productive cough with bilateral lower lung zone pleurisy, which has not been improved since admission. She does report fever before admission, but during this hospitalization, she has had no more episodes of fever at this time. The patient also reports recurrent urinary tract infection. She does have some wheezing, especially with activity, but no palpitation, nausea, vomiting, bowel habit change, urination discomfort, pedal edema, paroxysmal nocturnal dyspnea, noticeable weight change. PAST MEDICAL HISTORY: 1. COPD. No home oxygen therapy. 2. Ongoing daily light tobacco use. 3. Very mild coronary atherosclerosis. 4. Hypertensive cardiovascular disease with severe left ventricular hypertrophy. 5. Diabetes mellitus type 2. 6. Hyperlipidemia. 7. Chronic kidney disease with recurrent urinary tract infection. 8. History of uterine cancer diagnosed at age of 52, status post surgical removal and radiation. 9. History of congestive heart failure. 10. History of pericardial effusion requiring pericardial window for drainage at [facility]. PAST SURGICAL HISTORY: 1. Pericardial window. 2. Cholecystectomy. 3. Uterine cancer removal. 4. Right rotator cuff surgery. 5. Hysterectomy. 6. Status post angioplasty x4 on the right lower extremity and stent placement x1 on the left lower extremity. SOCIAL HISTORY: The patient used to smoke 1 to 1-1/2 packs per day for many years. Currently, she has been cut to less than half a pack per day. She has tried to quit before for many years. She has no history of alcohol or illicit drug use. FAMILY HISTORY: Positive for coronary disease. ALLERGIES: Levofloxacin. REVIEW OF SYSTEMS: A 10-point review of systems was conducted and the pertinent is listed within the HPI, otherwise noncontributory. PHYSICAL EXAMINATION: Vital Signs: Temperature 98.2, blood pressure 150/61, pulse 87, respiratory rate 20, oxygen saturation 97% on nasal cannula at 2. General: Chronically ill appealing, sitting on the edge of the bed with no acute distress noted. HEENT: Atraumatic, normocephalic. Trachea midline. Mucosa pink and moist. Respiratory: Even and unlabored. Symmetrical excursion. Auscultation revealed diminished breathing sounds bilaterally, prolonged expiratory phase, and expiratory and inspiratory wheezing bilaterally. Cardiovascular: Regular rate and rhythm. Gastrointestinal: Soft, protuberant, nontender. Normoactive bowel sounds in all 4 quadrants. Extremities: No pedal edema. No cyanosis. No clubbing. Dorsalis pedis 2+ bilaterally. Neurologic: Alert and oriented x4. Speech fluent. Follows commands. LABORATORY DATA: White blood cell 15.50, hemoglobin 12.0, hematocrit 36.4, platelets 316,000. Glucose 362. IMAGING DATA: Chest x-ray this morning, showed left upper lobe atelectasis. ASSESSMENT: This is a 69-year-old, female, with a medical history of chronic obstructive pulmonary disease, ongoing daily tobacco use, mild coronary atherosclerosis, hypertensive cardiovascular disease with severe left ventricular hypertrophy, diabetes mellitus type 2, hyperlipidemia, chronic kidney disease with recurrent urinary tract infection, uterine cancer, peripheral arterial disease, history of congestive heart failure, and history of pericardial effusion. She has been admitted to the [facility] since 10/27/2019, with suspected pneumonia and probable congestive heart failure. 1. Acute hypoxic respiratory failure. 2. Chronic obstructive pulmonary disease exacerbation. 3. Pneumonia in the lingula, left lower lobe, and to some extent the right lower lobe. 4. Diastolic congestive heart failure. 5. Bilateral lower lung zone pleurisy with persistent productive cough. 6. Ongoing daily light tobacco use. PLAN: 1. Continue supplemental oxygen as needed. 2. Continue antibiotics, steroid, bronchodilators. Add Mucomyst. 3. Follow up with blood culture and sputum culture. 4. Daily smoking cessation education. 5. Encourage routine deep breath, cough and incentive spirometer use. 6. Further recommendations pending hospital course. Thank you for the courtesy of this consult. Dictated by MICAELA Mckenna for Jed Bauer MD cc: MICAELA Mckenna MD [facility]
[2019-10-31] MEDS: DOXYCYCLINE 100 MG in NS 250 ML IV SCH ×2 (01:14→12:48)
[2019-10-31] MEDS: ZOSYN 3.375 GM in NS 50 ML IV SCH ×4 (03:17→20:11)
[2019-10-31] MEDS: DUONEB (A & A) INH SCH ×6 (03:40→23:25)
[2019-10-31] MEDS: SOLU-MEDROL IV SCH ×3 (06:21→21:13)
[2019-10-31] MEDS: HUMULIN R SUBQ SCH ×4 (06:21→20:10)
[2019-10-31] MEDS: MUCOMYST 20% INH SCH ×2 (08:02→19:53)
[2019-10-31] MEDS: ISOPTIN SR PO SCH (08:12)
[2019-10-31] MEDS: PLAVIX PO SCH (08:12)
[2019-10-31] MEDS: COZAAR PO SCH (08:12)
[2019-10-31] MEDS: LANTUS INSULIN SUBQ SCH (08:13)
[2019-10-31] MEDS: HUMALOG SUBQ SCH ×3 (09:11→16:36)
--- NOTE | 2019-10-31 10:13 | PROGRESS NOTE ---
DATE: 10/31/2019 SUBJECTIVE: This morning, Ms. Marino refers to be doing a little better. She was sitting at the edge of the bed. Her son and daughter were at the bedside at the time of the encounter. OBJECTIVE: Ms. Marino' vitals: Blood pressure is 172/73, pulse of 77, respiration is 20, temperature is 97.3. The patient is saturating 96% on 2 L. General: On general exam, Ms. Marino is a 69-year-old, elderly, female. She was sitting at the edge of the bed, no distress. HEENT: Mucosa is pink and moist. Anicteric. Acyanotic. Neck: Supple. Did not see any JVD. Chest: Good air entry bilateral. There is still expiratory wheezing bilaterally in both lungs. Cardiovascular: Regular rate and rhythm. No murmurs. No rubs. No gallops. GI: Abdomen was soft, nontender. Bowel sounds present. No hepatosplenomegaly. MORTGAGE CLOSING CLERK: The patient is awake, alert, oriented. There is no focal deficit. Patient's I's and O's, urine output was 800. She is currently positive balance a little bit over a 1000 during the hospital course. IMAGING STUDIES: None for today. LABORATORY DATA: Glucose was 228 this morning. MEDICATIONS: The patient's medications have also been all reviewed. She is on doxycycline and Zosyn for antimicrobial coverage. Losartan has been added this morning for better blood pressure control. She continues to be on Plavix and verapamil. ASSESSMENT: 1. Acute hypoxemic respiratory failure on presentation. The patient is still on supplemental oxygen. Initially, she presented with O2 saturation of 88%. She seems to have progressively gotten better. Will continue weaning her off. 2. Chronic obstructive pulmonary disease and severe exacerbation on presentation. The patient is getting better. She seems to be wheezing less. Oxygen demand has also improved. Will continue with the current antimicrobial coverage, steroids, and bronchodilation therapy. Pulmonary Medicine is also on board. 3. Left lingular pneumonia improving. Will get a repeat x-ray tomorrow morning. 4. Uncontrolled hypertension. We have added Losartan for better blood pressure control. 5. Severe left ventricular hypertrophy with grade 3 diastolic dysfunction noted on echocardiogram. 6. Diastolic heart failure most likely due to severe hypertension. 7. History of mild coronary artery disease. The patient is on statin and Plavix as well as verapamil. Follows up with Dr. Lees on outpatient. 8. Status post pericardial drainage of large pericardial effusion several years back. 9. Diabetes mellitus. The patient normally takes Amaryl at home, over here glucose levels have been slightly elevated partly because of steroids. The patient is currently on insulin regimen, however, I think that with the A1c of 7.5 she should be okay going back home on her oral hypoglycemic agents. In general, I think Ms. Marino is doing a lot better. She continues to be on supplemental oxygen but less than days before. She is still symptomatic but wheezing is getting better. We are going to get a chest x-ray, repeat labs on her tomorrow and reevaluate her for possibility of discharge. cc: Paul Padilla MD
[2019-10-31] MEDS: ZOCOR PO SCH (20:10)
[2019-11-01] MEDS: DOXYCYCLINE 100 MG in NS 250 ML IV SCH ×2 (00:14→12:12)
[2019-11-01] MEDS: ZOSYN 3.375 GM in NS 50 ML IV SCH ×2 (02:42→09:15)
[2019-11-01] MEDS: DUONEB (A & A) INH SCH ×3 (03:41→11:14)
[2019-11-01 05:55] LABS: ALLEN TEST YES; BE -5.9 mmoll (-3.0-3.0); BLOOD TYPE ARTERIAL; HCO3-(ACT) 20.3 mmoll (20.0-26.0); METHB 1.2 % (0.0-1.5); O2(CT) 14.6 mL/dL (15.0-23.0); O2HB 95.1 % (95.0-99.0); PCO2(98.6) 32 mmHg (35-45); PO2(98.6) 71 mmHg (60-100); SAMPLE BLOOD; SAO2 98.1 % (95.0-100.0); THB 10.9 g/dL (11.5-17.4); pH(98.6) 7.37 (7.35-7.45)
[2019-11-01 05:56] LABS: MODALITY ROOM AIR
[2019-11-01] MEDS: SOLU-MEDROL IV SCH ×2 (06:12→06:28)
[2019-11-01] MEDS: HUMULIN R SUBQ SCH ×2 (06:12→12:12)
[2019-11-01 07:31] LABS: ALBUMIN 3.1 g/dL (3.5-5.0); CALCIUM 8.4 mg/dL (8.8-10.2); CREATININE 1.5 mg/dL (0.5-0.9); PHOSPHORUS 3.4 mg/dL (2.7-4.5); POTASSIUM 3.8 mmol/L (3.5-5.1)
--- NOTE | 2019-11-01 07:47 | Diag Imaging Result Doc PS360 ---
EXAM: CHEST-2 VIEWS INDICATION: hypoxia TECHNIQUE: 2 views COMPARISON: 10/30/2019 FINDINGS: Lingular atelectasis is approximately stable. No new consolidation is identified. Cardiac silhouette is stable. IMPRESSION: Stable chest. Electronically signed by Paul Flor 11/01/2019 7:45 AM
[2019-11-01] MEDS ORDERED: SOLU-MEDROL IV SCH (08:15)
[2019-11-01] MEDS: MUCOMYST 20% INH SCH (08:16)
[2019-11-01] MEDS: ISOPTIN SR PO SCH (08:20)
[2019-11-01] MEDS: PLAVIX PO SCH (08:20)
[2019-11-01] MEDS: COZAAR PO SCH (08:20)
[2019-11-01] MEDS: HUMALOG SUBQ SCH ×2 (08:24→12:01)
[2019-11-01] MEDS ORDERED: LANTUS INSULIN SUBQ SCH (09:00)
[2019-11-01] MEDS ORDERED: PREDNISONE PO SCH (10:45)
[2019-11-01 11:51] VITALS: BP 174/65
--- NOTE | 2019-11-03 19:19 | DISCHARGE SUMMARY ---
ADMISSION DATE: 10/27/2019 DISCHARGE DATE: 11/01/2019 CONSULTS: Pulmonology, Dr. Bauer, Cardiology, Dr. Minor. PERTINENT STUDIES: CTA of chest with pneumonia in the lingula and left lower lobe and, to a lesser extent, the right lower lobe. No pulmonary emboli, stable right adrenal adenoma. Follow- up chest x-ray with still a little lingular infiltrate, otherwise looks okay. Initial ABG with pH 7.31, pCO2 34, PO2 55 on 2 L by nasal cannula. The last ABG with pH 7.37, pCO2 32, PO2 71 on room air. Admission creatinine 1.4, discharge creatinine 1.5. BNP is approximately 5000 x 2. Troponin negative x5. DISCHARGE DIAGNOSES: 1. Pneumonia. 2. Acute hypoxic respiratory failure. 3. Chronic obstructive pulmonary disease exacerbation. 4. Hypertension. 5. Chronic diastolic congestive heart failure. 6. Diabetes mellitus. 7. Coronary artery disease. 8. Chronic kidney disease 3. HOSPITAL COURSE: The patient presented with 3 days of worsening shortness of breath and chest discomfort with nausea and diaphoresis, was dyspneic on and hypoxic on presentation. Initial suspicion was for heart failure, but initial workup was more consistent with pneumonia and chronic obstructive pulmonary disease exacerbation. She was placed on steroids, DuoNebs and antibiotics with Zosyn but later transitioned to doxycycline and continued to do well. The patient's improvement was slow but steady and, on discharge, she was saturating well on room air. Her wheezing was resolved. Troponins remained negative. An EKG was largely unremarkable with only nonspecific changes. The patient's chronic kidney disease was essentially stable. She did have some fairly significant hyperglycemia, likely related to steroid use, but as steroids weaned down this improved. On the day of discharge, her sugar was 130 to 262. As the patient's respiratory failure had resolved and she was doing well on a fairly low dose of steroids and doxycycline, she was discharged home to follow up with her PCP. DISCHARGE VITALS: Temperature 97.7 degrees, pulse 79, respirations 23, blood pressure 174/65, O2 saturation 95% on room air. DISCHARGE DIET: Heart healthy diabetic. DISCHARGE MEDICATIONS: Simvastatin 40 mg p.o. at bedtime, glimepiride 4 mg p.o. daily, Plavix 75 mg p.o. daily, verapamil extended release 120 mg daily, losartan 25 mg p.o. daily, doxycycline 100 mg p.o. b.i.d. for an additional 8 days, Medrol Dosepak, 1 pack as directed, ProAir inhaler up to 4 times a day as needed. FOLLOWUP AND PLAN: The patient discharging home to finish course of doxycycline for her pneumonia. A short course of steroids for her chronic obstructive pulmonary disease exacerbation. Given albuterol inhaler, as well, to use as needed. Otherwise, continuing home medications. Patient to follow up with PCP. TIME SPENT: Greater than 30 minutes spent in arranging discharge and counseling patient.
== END 2019-11-01 12:15 | disposition home or self-care (01) | DRG 193 ==
LOC: ED 17:52 → EDIPHOLD 22:09 → SUATTDRO 22:09 → 2N 10-28 13:11
PROVIDERS: ATTEND Internal Medicine